=== PATIENT | female | born 1965 | race Caucasian/White ===

== ENCOUNTER 2022-04-22 11:02 | Emergency (ER) | payer OTHER ==
[2022-04-22 12:01] VITALS: BP 105/58
[2022-04-22 13:34] LABS: B. PARAPERTUSSIS- RESP PCR PAN NOT DETECTED; B. PERTUSSIS- RESP PCR PANEL NOT DETECTED; C. PNEUMONIAE- RESP PCR PANEL NOT DETECTED; CORONAVIRUS 229E-RESP PCR NOT DETECTED; CORONAVIRUS HKU1-RESP PCR NOT DETECTED; CORONAVIRUS NL63-RESP PCR NOT DETECTED; CORONAVIRUS OC43-RESP PCR NOT DETECTED; HUMAN METAPNEUMOVIRUS DETECTED; INFLUENZA A- RESP PCR PANEL NOT DETECTED; INFLUENZA B - RESP PCR PANEL NOT DETECTED; M. PNEUMONIAE- RESP PCR PANEL NOT DETECTED; PARAINFLUENZA VIRUS 1 NOT DETECTED; PARAINFLUENZA VIRUS 2 NOT DETECTED; PARAINFLUENZA VIRUS 3 NOT DETECTED; PARAINFLUENZA VIRUS 4 NOT DETECTED; RHINOVIRUS/ENTEROVIRUS NOT DETECTED; RSV- RESP PCR PANEL NOT DETECTED; SARS-CoV-2 -RESP PCR PANEL NOT DETECTED
[2022-04-22] MEDS ORDERED: guaiFENesin/CODEINE 5 ML UDC PO STA (13:52)
--- NOTE | 2022-04-22 13:54 | ED Physician Documentation ---
PD HPI DYSPNEA - Stated complaint Stated Complaint: COUGH/SOA - Chief complaint Chief Complaint: Resp - History obtained from History obtained from: Patient - Additional information Additional information: 56-year-old woman with history of asthma who has been sick for the last few days with cough and cold, she went to an urgent care 2 days ago and tested negative for COVID and had a negative chest x-ray but continues to have severe coughing keeping her up at night. Some subjective fevers as well. She was prescribed Tessalon and prednisone which has not been very helpful. Review of Systems Constitutional: reports: Fever. denies: Chills Nose: reports: Rhinorrhea / runny nose Respiratory: reports: Dyspnea, Cough PD PAST MEDICAL HISTORY - Present Medications Home Medications: Ambulatory Orders Medication Instructions Recorded Confirmed guaiFENesin/CODEINE [Robitussin AC] 5 - 10 ml PO Q6H PRN #120 ml 04/22/22 - Allergies Allergies/Adverse Reactions: Allergies Allergy/AdvReac Type Severity Reaction Status Date / Time acetaminophen [From Percocet] Allergy Emesis Verified 04/22/22 12:02 aspirin [From Percodan] Allergy Emesis Verified 04/22/22 12:02 bupropion [From Wellbutrin] Allergy Anaphylaxis Verified 04/22/22 12:02 oxycodone [From Percocet] Allergy Emesis Verified 04/22/22 12:02 tetanus and diphtheria Allergy Unknown Verified 04/22/22 12:02 toxoids PD ED PE NORMAL - Vitals Vital signs reviewed: Yes - General General: Alert and oriented X 3, No acute distress - HEENT HEENT: Ears normal, Pharynx benign - Cardiac Cardiac: RRR, No murmur - Respiratory Respiratory: Other (Frequent coughing but nonlabored breathing, clear lung sounds) - Abdomen Abdomen: Non tender - Neuro Neuro: Alert and oriented X 3, Normal speech Results - Vitals Vitals: Vital Signs - 24 hr 04/22/22 11:56 Temperature 37.5 C Heart Rate 98 Respiratory 18 Rate Blood Pressure 105/58 L O2 Saturation 97 Oxygen O2 Source Room air - Labs Labs: Laboratory Tests 04/22/22 12:03 Nasal Adenovirus (PCR) NOT DETECTED Nasal B. parapertussis DNA (PCR) NOT DETECTED Nasal Coronavir 229E PCR NOT DETECTED Nasal Coronavir HKU1 PCR NOT DETECTED Nasal Coronavir NL63 PCR NOT DETECTED Nasal Coronavir OC43 PCR NOT DETECTED Nasal Enterovir/Rhinovir PCR NOT DETECTED Nasal Influenza B PCR NOT DETECTED Nasal Influenza A PCR NOT DETECTED Nasal Parainfluen 1 PCR NOT DETECTED Nasal Parainfluen 2 PCR NOT DETECTED Nasal Parainfluen 3 PCR NOT DETECTED Nasal Parainfluen 4 PCR NOT DETECTED Nasal RSV (PCR) NOT DETECTED Nasal B.pertussis DNA PCR NOT DETECTED Nasal C.pneumoniae (PCR) NOT DETECTED Sotero Human Metapneumo PCR DETECTED A Nasal M.pneumoniae (PCR) NOT DETECTED Nasal SARS-CoV-2 (PCR) NOT DETECTED Departure - Departure Disposition: 01 Home, Self Care Clinical Impression: Upper respiratory tract infection Condition: Good Record reviewed to determine appropriate education?: Yes Instructions: ED Viral Syndrome Prescriptions: guaiFENesin/CODEINE [Robitussin AC] 5 - 10 ml PO Q6H PRN #120 ml PRN Reason: Cough Comments: I sent your prescription electronically to [facility] in [place]. Today you were found to be positive for human metapneumovirus, common cause of chest colds. It will run its course and you get better on its own but of course return if you worsen or if new symptoms develop. Do not drink or drive while taking prescription cough medicine.
== END 2022-04-22 14:02 | disposition home or self-care (01) ==
LOC: ED 11:02
DX: J06.9 Acute upper respiratory infection, unspecified (principal)
CPT/HCPCS: 87633; 99281; 99283; A9270